=== PATIENT | male | born 1995 | race Caucasian/White ===

== ENCOUNTER 2017-11-09 23:52 | Emergency (ER) | payer BC ==
[~2017-11-09] VITALS: Ht 185.4 cm; Wt 133.5 kg
[~2017-11-09 23:52] MED LIST: CELECOXIB200 MG PO; CYCLOBENZAPRINE10 MG PO; OXYCODONE HCL5 MG PO
[2017-11-10] MEDS ORDERED: COMPAZINE10 MG PO (01:24)
[2017-11-10 02:23] VITALS: BP 137/81
== END 2017-11-10 02:31 | disposition home or self-care (01) ==
LOC: EME 23:52
DX: J06.9 Acute upper respiratory infection, unspecified (principal); G43.909 Migraine, unspecified, not intractable, without status migrainosus; F32.9 Major depressive disorder, single episode, unspecified; Z87.891 Personal history of nicotine dependence
CPT/HCPCS: 87502; 99281; 99284; J0780